=== PATIENT | male | born 1970 | race African-American/Black ===

== ENCOUNTER 2024-05-19 14:23 | Emergency (ER) | payer SELFPAY ==
[~2024-05-19] VITALS: Ht 170.2 cm; Wt 90.7 kg
[2024-05-19 14:44] VITALS: PULSE 77; RESP 18; TEMP 97.9; O2SAT 95
[2024-05-19] MEDS: ACETAMINOPHEN 325 MG TAB PO ONE (15:07)
[2024-05-19] MEDS: IBUPROFEN 400 MG TAB PO ONE (15:08)
[2024-05-19] MEDS ORDERED: MELOXICAM15 MG PO (15:23)
[2024-05-19] MEDS ORDERED: METHOCARBAMOL750 MG PO (15:23)
== END 2024-05-19 15:30 | disposition home or self-care (01) ==
LOC: FSED 14:30
DX: S16.1XXA Strain of muscle, fascia and tendon at neck level, initial encounter (principal); M54.50 Low back pain, unspecified; K03.81 Cracked tooth; V43.52XA Car driver injured in collision with other type car in traffic accident, initial encounter; Y92.488 Other paved roadways as the place of occurrence of the external cause
CPT/HCPCS: 99283